=== PATIENT | female | born 1970 | race Caucasian/White ===

== ENCOUNTER 2019-04-09 22:23 | Emergency (ER) | payer SELFPAY ==
[~2019-04-09] VITALS: Ht 165.1 cm; Wt 68.2 kg
[2019-04-09 22:50] VITALS: BP 160/98
--- NOTE | 2019-04-09 23:44 | PHYS DOC ---
Past Medical History Past Medical History: Diabetes-Type II, High Cholesterol, Hypertension Past Surgical History: Hysterectomy Smoking Status: Current Every Day Smoker Alcohol Use: None Adult General Chief Complaint Chief Complaint: UPPER EXTREMITY PAIN HPI HPI Patient is a 48 year old female, accompanied by a friend, who presents to the emergency department with complaints of pain in her right arm and numbness in her right thumb without any injury for over a month. She states that she has been seen at a facility in [place] multiple times for the same thing recently and no one can figure out what is wrong with her. Patient denies any fever, redness, warmth, or swelling of the affected extremity. Patient denies any chest pain, palpitations, nausea, vomiting, abdominal pain, sore throat, headache, neck pain, or recent fall. She states that nothing helps to relieve the pain and movement does not make the pain worse. She states that the pain is constant. She currently rates the pain a 9 out of 10 on the pain scale and describes it as a constant aching sensation. Review of Systems Review of Systems Complete ROS is negative unless otherwise noted in HPI. Allergies Allergies Allergies Coded Allergies Type Severity Reaction Last Updated Verified No Known Drug Allergies 04/09/19 No Physical Exam Physical Exam See Above Constitutional: Well developed, well nourished, no acute distress, non-toxic appearance. [] HENT: Normocephalic, atraumatic, bilateral external ears normal, nose normal. [] Eyes: PERRLA, EOMI, conjunctiva normal, no discharge. [] Neck: Normal range of motion, no stridor. [] Cardiovascular:Heart rate regular rhythm Lungs & Thorax: Bilateral breath sounds clear to auscultation, Respirations e vernell and unlabored, no retractions, no respiratory distress[] Skin: Warm, dry, no erythema, no rash; baseball sized old yellow bruising noted to right lateral upper forearm [] Extremities: Right upper extremity: No obvious deformity, no crepitus, No bony tenderness, no cyanosis, no clubbing, ROM intact, no edema, PMS intact [] Neurologic: Alert and oriented X 3, no focal deficits noted. [] Psychologic: Affect normal, judgement normal, mood normal. [] Current Patient Data Vital Signs Vital Signs Date Time Temp Pulse Resp B/P (MAP) Pulse Ox O2 Delivery O2 Flow Rate FiO2 04/09/19 22:50 97.9 100 18 160/98 (118) 100 Room Air 97.9 EKG EKG [] Radiology/Procedures Radiology/Procedures [] Course & Med Decision Making Course & Med Decision Making Pertinent Labs and Imaging studies reviewed. (See chart for details) dx: medical screening exam A medical screening exam was performed, patient was found to have no emergent medical condition. The patient eloped after talking with registration. [] [] Dragon Disclaimer Dragon Disclaimer This electronic medical record was generated, in whole or in part, using a voice recognition dictation system. Departure Departure Impression: Primary Impression: Encounter for medical screening examination Disposition: HOME, SELF-CARE (Pt eloped after speaking with registration. ) Condition: STABLE Referrals: NO PCP (PCP) STEVE TEE [employer] Apr 09, 2019 23:44
== END 2019-04-09 23:15 | disposition home or self-care (01) ==
LOC: ER 22:23
DX: M79.601 Pain in right arm (principal); R20.0 Anesthesia of skin; E11.9 Type 2 diabetes mellitus without complications; E78.00 Pure hypercholesterolemia, unspecified; I10 Essential (primary) hypertension; F17.200 Nicotine dependence, unspecified, uncomplicated; Z90.710 Acquired absence of both cervix and uterus
CPT/HCPCS: 99281